=== PATIENT | male | born 1970 | race Caucasian/White ===

== ENCOUNTER → 2022-01-12 09:41 | Outpatient (CLI) | payer OTHER, SELFPAY ==
--- NOTE | ~2022-01-12 | XR_ITS ---
EXAMINATION: XR abdomen/kub 1V DATE: 01/12/2022 10:40 INDICATION: Upper abdominal pain. Constipation. TECHNIQUE: A supine view of the abdomen on 2 radiographs was obtained. COMPARISON: None. FINDINGS: There are no dilated loops of bowel. There is a small volume of stool in the colon. Calcifi cations in the left pelvis are likely phleboliths. IMPRESSION: 1. Normal bowel gas pattern. Reviewed, dictated and finalized at location A.
== END ==
DX: K59.00 Constipation, unspecified (principal)
CPT/HCPCS: 74018